=== PATIENT | female | born 1975 | race Caucasian/White ===

== ENCOUNTER 2018-02-13 17:54 | Inpatient (IN) | payer OTHER, SELFPAY ==
[2018-02-13 19:02] LABS: #Basophils 0.1 thou/uL (0.0-0.2); #Eosinphils 0.3 thou/uL (0.0-0.7); #Lymphocytes 3.2 thou/uL (1.20-3.40); #Monocytes 0.8 thou/uL (0.11-0.59); #Neutrophils 5.7 thou/uL (1.40-6.50); %Basophils 0.5 % (0.0-1.0); %Eosinophils 3.3 % (0.0-10.0); %Lymphocytes 31.9 % (21.0-51.0); %Monocytes 7.7 % (0.0-10.0); %Neutrophils 56.6 % (42.0-75.0); Hemoglobin 12.3 g/dL (12.0-16.0); Mean Corpuscular HGB CONC 33.7 g/dL (32.0-36.0); Mean Corpuscular Volume 94.7 fl (81.0-99.0); Platelet Count 295 thou/uL (130-400); RBC Distribution Width 11.8 % (11.5-14.5); Red Blood Cell (RBC) Count 3.84 mill/uL (4.20-5.40); White Blood Cell (WBC) Count 10.1 thou/uL (4.8-10.8)
[2018-02-13 19:12] LABS: Prothrombin Time 13.8 SEC (12.0-14.7)
[2018-02-13 19:13] LABS: PTT 29.8 SEC (22.9-36.1)
[2018-02-13 19:23] LABS: ALT (SGPT) 43 U/L (8-55); AST (SGOT) 37 U/L (5-34); Albumin 3.5 g/dL (3.5-5.0); Alkaline Phosphatase 93 U/L (40-150); Anion Gap 11 mmol/L (10-20); BUN (Urea Nitrogen) 27 mg/dL (7.0-18.7); Bilirubin, Total 0.3 mg/dL (0.2-1.2); Calc. Creatinine Clearance 0 mL/min (70-130); Calcium 9.1 mg/dL (7.8-10.44); Carbon Dioxide 24 mmol/L (22-29); Chloride 106 mmol/L (98-107); Estimated GFR-MDRD 26; Glucose 95 mg/dL (70-105); Magnesium 2.1 mg/dL (1.6-2.6); Potassium 4.1 mmol/L (3.5-5.1); Protein, Total 6.5 g/dL (6.0-8.3); Sodium 137 mmol/L (136-145)
[2018-02-13 19:29] LABS: BHCG - Serum Negative (NEGATIVE); Pregs Control Background? CLEAR/WHITE (CLR/WHITE); Pregs Control Bar Appear? YES (CONTROL BAR)
[2018-02-13 19:31] LABS: CKMB 5.9 ng/mL (0-6.6)
[2018-02-13 19:36] LABS: Troponin I 0.859 ng/mL (< 0.028)
[2018-02-13 20:54] LABS: Bilirubin Small (Negative); Blood, Urine Trace (Negative); Clarity TURBID (Clear); Glucose, Urine (Dipstick) 250 mg/dL (Negative); Leukocyte Large (Negative); Nitrite Negative (Negative); Protein, Urine (Dipstick) Trace mg/dL (Neg-Trace); Specific Gravity, Urine 1.027 (1.002-1.036)
[2018-02-13 20:55] LABS: Bacteria/HPF 4+ HPF (None Seen); RBC/HPF 0-3 HPF (0-3); Squamous Epithelial 0-3 HPF (0-3)
[2018-02-13 20:56] LABS: Pathc Cast-AUWi Flag 2.92 (0-2.49); Yeast-AUWi Flag 114.8 (0-25.0)
[2018-02-13 20:57] LABS: Crystals/HPF None Seen HPF (Negative); Hyaline Casts/LPF 0-3 HYALINE CAST LPF (0-3 Hyaline); Yeast-All Forms None Seen HPF (None Seen)
--- NOTE | 2018-02-13 21:00 | RAD ---
SINGLE VIEW OF THE CHEST: Comparison: None. History: Altered mental status. Weakness. High blood glucose. FINDINGS: Single view of the chest shows a normal sized cardiomediastinal silhouette. There is no evidence of c onsolidation, mass, or pleural effusion. The bones are unremarkable. IMPRESSION: No evidence of acute cardiopulmonary disease. POS: [facility]
[2018-02-13 22:16] LABS: Critical Call Chem Troponin I RESULT DECREASING; Troponin I 0.714 ng/mL (< 0.028)
[2018-02-13] MEDS ORDERED: Sodium Chloride 0.9% 1,000 ML IV SCH (22:28)
[2018-02-13 22:34] VITALS: BMI 46.5
[2018-02-14] MEDS ORDERED: Ondansetron ODT 4 MG TAB PO PRN (00:11)
[2018-02-14] MEDS ORDERED: Enoxaparin Sodium 30 MG/0.3 ML SYRINGE SC SCH (00:11)
[2018-02-14] MEDS ORDERED: Dextrose 50% Abboject 50 ML SYRINGE SLOW IVP PRN ×2 (00:11→21:50)
[2018-02-14] MEDS ORDERED: Acetaminophen 325 MG TAB PO PRN (00:11)
[2018-02-14] MEDS ORDERED: Ondansetron HCl/PF 4 MG/2 ML Vial IVP PRN (00:11)
[2018-02-14] MEDS ORDERED: Dextrose 5% in Water 1,000 ML IV PRN ×2 (00:11→21:50)
[2018-02-14] MEDS: Sodium Chloride 0.9% 1,000 ML IV SCH ×3 (00:46→21:16)
[2018-02-14 00:57] LABS: CKMB 6.1 ng/mL (0-6.6)
[2018-02-14 00:59] LABS: Critical Call Chem Troponin I RESULT DECREASING; Troponin I 0.496 ng/mL (< 0.028)
--- NOTE | 2018-02-14 03:58 | HP ---
PRIMARY CARE PHYSICIAN: JOSE MIGUEL Alexandre. DATE OF ADMISSION: 02/13/2018 TIME OF SERVICE: 2245 hours. CHIEF COMPLAINT: Altered mental status. HISTORY OF PRESENT ILLNESS: Ms. Bejarano is a pleasant 42-year-old female with history of severe ob esity, fibromyalgia, insulin-dependent diabetes, hypertension, hyperlipidemia, who presents to the em ergency department via EMS after being altered. The patient was in normal state of health. She took a Levemir the night of 02/12/2018, and was drivi ng home to [place] with her fiance. They did not eat breakfast as they normally do and noted that while she was driving that she had some split-second hallucinations that were seen in her peripheral vision, but when she again looked at them, they were gone. They stopped at [place] for lunch where she ate a hamburger and stopped after that to a nap and she wa s feeling tired, but she does need to sleep. From that point on, she does not remember, the rest of the history was told to her and taken from the ER notes. Her alarm went off and her fiance tried to wake her up, but he was unable to get her arousable. EMS was activated. On arrival, her blood sugars were poorly in the 40s. She was given 1 amp of D50 and started on D10 drip and transported to the emergency department. She did come to the emergency department. She denies any chest pain, shortness of breath, no abdomin al pain, no nausea, vomiting, no urinary symptoms, no respiratory symptoms. Blood sugars remained in the 110s to 140 since then. Workup in the emergency department was largely negative. Creatinine was 2.0, which she thinks is hig her than her baseline, she is also noted to have a troponin I that was 0.859 with a repeat of 0.714. We were subsequently called for admit for hypoglycemia and elevated troponin. No history of heart problem. PAST MEDICAL HISTORY: 1. Fibromyalgia. 2. Diabetes mellitus, type 2, insulin-dependent. 3. Hyperlipidemia. 4. Hypertension. 5. Depression. 6. Retinal stroke about 2-1/2 years ago. She had a cardiac workup at the [facility] that was reportedly neg ative. 7. Severe obesity. PAST SURGICAL HISTORY: Cholecystectomy. HOME MEDICATIONS: 1. Levemir 100 units subcu at bedtime. 2. NovoLog, she said 8 units per 10 grams of carbohydrates per meal and NovoLog 8 units for every 10 0 mg/dL, blood glucose greater than 120. CURRENT MEDICATIONS: 1. Aspirin 81 mg daily. 2. Atorvastatin 80 mg p.o. at bedtime. 3. Flexeril 10 mg p.o. b.i.d. 4. Fluvoxamine 100 mg p.o. t.i.d. 5. Hydroxyzine 50 mg p.o. at bedtime. 6. Losartan 50 mg p.o. daily. 7. Omeprazole 40 mg at bedtime. 8. Lyrica 150 mg p.o. b.i.d. 9. Propranolol 50 mg daily. 10. Tramadol 100 mg p.o. t.i.d. p.r.n. ALLERGIES: LISINOPRIL, METFORMIN, and another blood pressure medication which she cannot recall. FAMILY HISTORY: Negative for clotting or bleeding disorder, no immune dysfunction. No premature cor onary artery disease. SOCIAL HISTORY: She uses rare alcohol. No tobacco or IV drug. She is engaged to her fiance. She d id serve about 4-1/2 years in the [employer]. REVIEW OF SYSTEMS: A 10-point review of systems was performed and is negative for all systems except as stated as per HPI. PHYSICAL EXAMINATION: VITAL SIGNS: Temperature 97.8, pulse 75, blood pressure 116/58, respiratory rate 20, satting 97% on room air. GENERAL: She is awake. She is alert. She is oriented x3. She is a severely obese, well-nourished white female, who is in no distress. HEENT: Normocephalic, atraumatic. Pupils are equal, round and react to light bilaterally. Mucous m embranes are moist. Teeth are in poor repair. She is almost edentulous. NECK: Supple. I cannot see any JVD. I can palpate no lymphadenopathy. She has normal carotid upst rokes. I do not appreciate bruits. LUNGS: Clear. She has good air movement. Symmetrical chest excursion. No prolonged expiratory pha se. No wheezes, rales or rhonchi. CARDIOVASCULAR: Heart sounds are distant. I do hear a normal S1 and S2. No S3 or S4. I do not fauzia reciate murmurs. ABDOMEN: Severely obese, it is nontender, nondistended. She has good bowel sounds. I cannot palpat e internal organs. EXTREMITIES: There are no signs of clubbing with trace pedal edema from the ankle level distally. D orsalis pedis and posterior tibial pulses are 2+ bilaterally. SKIN: Otherwise warm, moist and well perfused. She has no rashes or lesions. MUSCULOSKELETAL: Normal to inspection. Large joints appear intact. There is no palpable effusions and no inflammation. NEUROLOGIC: Cranial nerves II-XII are grossly intact, she has no focal deficits, she has 5/5 strengt h in all 4 of her extremities. She has a normal speech pattern. LABORATORY DATA: Sodium is 137, potassium 4.1, chloride 106, bicarbonate 24, BUN 27, creatinine 2.08 , calcium 9.1, glucose 95. Liver function normal except for an AST barely abnormal at 37. CBC showed a white count of 10.1, hem oglobin 12.3, hematocrit 36.3, and platelet count is 295,000. Her white count has normal differentia l. Total CK was 129 with CK-MB of 5.9. Initial troponin I was 0.859 with a repeat of 0.714. Lactic aci d was normal at 1.6. INR was 1.0. RADIOGRAPHIC STUDIES: Chest x-ray done in the emergency department showed no evidence of acute cardi opulmonary disease. ASSESSMENT AND PLAN: 1. Metabolic encephalopathy: The patient did get hypoglycemic that has since resolved and mental st atus has returned to normal. 2. Abnormal troponin: Troponin is certainly elevated in the concerning range at 0.859. We will get serial cardiac biomarkers, we will request a 2D echocardiogram. We will likely need Cardiology cons ultation and possible stress test. She had no symptoms. We will place her on metoprolol and nitro p aste tonight and watch her closely. 3. Acute kidney injury versus chronic kidney disease: Creatinine is 2.08. She is not noted being t hat high normally. We will hydrate her with normal saline and recheck her morning creatinine. 4. Severe obesity. 5. Hypertension, not on any antihypertensive that she listed. 6. Diabetes mellitus, type 2, insulin-dependent. Due to hypoglycemia, we will place her on sliding scale insulin only and a diabetic diet. She will be n.p.o. after midnight anyways.
[2018-02-14 05:47] LABS: ALT (SGPT) 49 U/L (8-55); AST (SGOT) 47 U/L (5-34); Albumin 3.2 g/dL (3.5-5.0); Alkaline Phosphatase 101 U/L (40-150); Anion Gap 17 mmol/L (10-20); BUN (Urea Nitrogen) 31 mg/dL (7.0-18.7); Bilirubin, Total 0.2 mg/dL (0.2-1.2); Calc. Creatinine Clearance 56 mL/min (70-130); Calcium 8.2 mg/dL (7.8-10.44); Carbon Dioxide 17 mmol/L (22-29); Cardiac Risk 2.9 (Less than 4.5); Chloride 105 mmol/L (98-107); Cholesterol 136 mg/dl (< 200 Desired); Estimated GFR-MDRD 20; Globulin 2.7 g/dL (2.4-3.5); Glucose 424 mg/dL (70-105); HDL Cholesterol 47 mg/dL (>60 Neg Risk); LDL Cholesterol, Calculated 69 mg/dL; Potassium 5.8 mmol/L (3.5-5.1); Protein, Total 5.9 g/dL (6.0-8.3); Sodium 133 mmol/L (136-145); Triglycerides 101 mg/dL (Less than 150)
[2018-02-14 06:11] LABS: Hemoglobin A1c 7.4 % (4.0-6.0)
[2018-02-14 06:23] LABS: Band 7 % (5-11); Eosinophils 1 % (0-10); Hemoglobin 11.6 g/dL (12.0-16.0); Lymphocytes 21 % (21-51); MDiff Complete? YES; Mean Corpuscular HGB CONC 30.8 g/dL (32.0-36.0); Mean Corpuscular Hemoglobin 31.3 pg (27.0-31.0); Mean Platelet Volume 7.6 fL (7.4-10.4); Monocytes 4 % (0-10); Neutrophil 67 % (42-75); Platelet Count 250 thou/uL (130-400); RBC Distribution Width 11.9 % (11.5-14.5); Red Blood Cell (RBC) Count 3.69 mill/uL (4.20-5.40); White Blood Cell (WBC) Count 11.3 thou/uL (4.8-10.8)
[2018-02-14] MEDS: HumaLOG 300 UNITS/3 ML VIAL SC PRN ×3 (06:35→17:38)
[2018-02-14] MEDS ORDERED: cefTRIAXone\\ROCEPHIN 1 GM in Sodium Chloride 0.9% 100 ML IVPB SCH (07:15)
[2018-02-14] MEDS ORDERED: Famotidine 20 MG TAB PO SCH (09:00)
[2018-02-14] MEDS: cefTRIAXone\\ROCEPHIN 1 GM, Syringe 0.4 ML in Sterile Water 9.6 ML SLOW IVP SCH (09:07)
[2018-02-14 09:47] LABS: CKMB 7.7 ng/mL (0-6.6); Troponin I 0.846 ng/mL (< 0.028)
[2018-02-14] MEDS ORDERED: Nitroglycerin 0.4 MG TAB (25 Tab Bottle) PO PRN (11:33)
[2018-02-14] MEDS ORDERED: Cyclobenzaprine 10 MG TAB PO PRN (11:38)
[2018-02-14] MEDS ORDERED: Insulin Detemir 100 UNITS/ML 15 UNITS in Pre-Filled Syringe SC SCH (12:45)
--- NOTE | 2018-02-14 12:47 | PDOC.PN ---
- Subjective Encounter Start Date: 02/14/18 Encounter Start Time: 08:15 Subjective: no c/o chest pain or sob -: is awake and oriented -: no prior ckd per patient - Objective Resuscitation Status: Resuscitation Status FULL:Full Resuscitation MAR Reviewed: Yes Vital Signs & Weight: Vital Signs (12 hours) Temp Pulse Pulse Pulse Resp Resp Resp 02/14/18 10:58 82 78 18 18 02/14/18 08:24 97.4 F L 80 15 02/14/18 04:00 98.7 F 70 16 BP BP BP Pulse Ox Pulse Ox Pulse Ox 02/14/18 10:58 189/98 H 174/88 H 99 98 02/14/18 08:24 132/78 97 02/14/18 04:00 98/50 L 97 Weight Weight 288 lb 12.8 oz I&O: 02/13/18 02/14/18 02/15/18 06:59 06:59 06:59 Intake Total 569 Balance 569 Result Diagrams: 02/14/18 04:41 02/14/18 04:41 Additional Labs: Accuchecks 02/14/18 02/14/18 02/14/18 12:00 11:03 09:47 POC Glucose 354 H 327 H 348 H 02/14/18 02/13/18 02/13/18 06:10 22:15 20:26 POC Glucose Greater than 550 H* 168 H 112 H Phys Exam - Physical Examination HEENT: PERRLA, moist MMs Neck: no JVD, supple Respiratory: no wheezing, no rales Cardiovascular: RRR, no significant murmur Gastrointestinal: soft, non-tender, positive bowel sounds Musculoskeletal: no edema, pulses present Neurological: non-focal, moves all 4 limbs Psychiatric: normal affect, A&O x 3 Dx/Plan (1) DM type 2 (diabetes mellitus, type 2) Status: Chronic Qualifiers: Diabetes mellitus complication status: with hyperglycemia (2) Demand ischemia of myocardium Code(s): I24.8 - OTHER FORMS OF ACUTE ISCHEMIC HEART DISEASE Status: Acute (3) EZEKIEL (acute kidney injury) Code(s): N17.9 - ACUTE KIDNEY FAILURE, UNSPECIFIED Status: Acute (4) Dehydration Code(s): E86.0 - DEHYDRATION Status: Acute Comment: moderate (5) UTI (urinary tract infection) Status: Acute Qualifiers: Urinary tract infection type: acute cystitis Hematuria presence: without hematuria Qualified Code(s): N30.00 - Acute cystitis without hematuria (6) Morbid obesity with BMI of 45.0-49.9, adult Code(s): E66.01 - MORBID (SEVERE) OBESITY DUE TO EXCESS CALORIES; Z68.42 - BODY MASS INDEX (BMI) 45.0-49.9, ADULT Status: Chronic (7) Metabolic acidosis Code(s): E87.2 - ACIDOSIS Status: Acute (8) Acute encephalopathy Code(s): G93.40 - ENCEPHALOPATHY, UNSPECIFIED Status: Resolved Comment: due to hypoglycemia (9) HTN (hypertension) Code(s): I10 - ESSENTIAL (PRIMARY) HYPERTENSION Status: Chronic Qualifiers: Hypertension type: essential hypertension Qualified Code(s): I10 - Essential (primary) hypertension - Plan correct electrolytes -: iv hydration, watch for renal function -: stress test in am if stable and renal function is trending to baseline -: levemir 15u bid, HbA1C is 7.4 -: ceftriaxone for uti, echo, cardio consultation * . Review of Systems - Medications/Allergies Allergies/Adverse Reactions: Allergies Allergy/AdvReac Type Severity Reaction Status Date / Time lisinopril Allergy Verified 02/13/18 23:26 metformin Allergy Verified 02/13/18 23:26 Medications: Current Medications Acetaminophen (Tylenol) 650 mg PO Q4H PRN PRN Reason: Headache/Fever or Pain Aspirin (Aspirin) 325 mg PO DAILY [facility] Atorvastatin Calcium (Lipitor) 80 mg PO HS [facility] Cyclobenzaprine HCl (Flexeril) 10 mg PO BID PRN PRN Reason: pain Dextrose/Water (Dextrose 50%) 25 gm SLOW IVP PRN PRN PRN Reason: Hypoglycemia Fluvoxamine Maleate (Luvox) 100 mg PO TID [facility] Glucagon (Glucagon) 1 mg IM PRN PRN PRN Reason: Hypoglycemia Dextrose/Water (D5w) 1,000 mls @ 0 mls/hr IV .Q0M PRN; As Directed PRN Reason: Hypoglycemia Sodium Chloride (Normal Saline 0.9%) 1,000 mls @ 100 mls/hr IV .Q10H [facility] Last Admin: 02/14/18 00:46 Dose: 1,000 mls Ceftriaxone Sodium 1 gm/ (Syringe 0.4 ml/ Sterile Water) 10 mls @ 120 mls/hr SLOW IVP 0900 [facility] Last Admin: 02/14/18 09:07 Dose: 10 mls Insulin Detemir 15 units/ (Miscellaneous Medication) 0.15 mls @ 0 mls/hr SC BID [facility] Insulin Detemir 15 units/ (Miscellaneous Medication) 0.15 mls @ 0 mls/hr SC NOW [facility] Stop: 02/14/18 14:45 Insulin Human Lispro (Humalog) 0 units SC .MILD SLIDING SCALE PRN PRN Reason: Mild Correctional Scale Last Admin: 02/14/18 06:35 Dose: 6 unit Metoprolol Tartrate (Lopressor) 12.5 mg PO BID [facility] Nitroglycerin (Nitrostat) 0.4 mg PO Q5MIN PRN PRN Reason: Chest Pain Ondansetron HCl (Zofran Odt) 4 mg PO Q6H PRN PRN Reason: Nausea/Vomiting Ondansetron HCl (Zofran) 4 mg IVP Q6H PRN PRN Reason: Nausea/Vomiting Pantoprazole Sodium (Protonix) 40 mg PO HS [facility] Pregabalin (Lyrica) 150 mg PO BID [facility]
--- NOTE | 2018-02-14 15:38 | CON ---
DATE OF CONSULTATION: 02/14/2018 DATE OF ADMISSION: 02/13/2018 INDICATION FOR CONSULTATION: This is a 42-year-old female with a history of diabetes, hypertension, hypercholesterolemia, and elevated cardiac enzymes. HISTORY OF PRESENT ILLNESS: This is a very pleasant 42-year-old female, who has a history of insulin -dependent diabetes, hypertension, dyslipidemia with severe obesity, and fibromyalgia. She presented to the emergency room after having mental status changes or altered mental status. She had been yes terday driving through this area when she felt like she was seeing some hallucinations, and she thoug ht perhaps her blood sugar was low. They stopped and got some lunch. She thought she would take a n ap and after that the next thing she remembers was being in the emergency room. Apparently her fianc e tried to wake her up. He was not driving, as he has epilepsy, but she was sitting behind the steer ing wheel when he called 911, but she had been stopped and was trying to take a nap. He could not a rouse her and then the 911 was called and she was brought to the emergency room, she was found to hav e a decrease in her blood sugar. I believe her heart rate was in the 40s and she was given an amp of D50 and started on a drip. This was performed actually before she was even brought to the emergency room. Since being here, her blood sugars have been anywhere in the 500 to [address]. [address] atus has improved; however, she is still not exactly back to her baseline she says, and some of the q uestions, she will start to answer a question, but will drift off to another question entirely or to another answer and is having confusion and sometimes with some of the issues for them questioning her . She denied any chest pain. She denied any previous cardiac history. She did have a workup appare ntly about 2-1/2 years ago with possible stress testing at the [facility], but no significant abnorm alities were noted at that time. At this time, she had no EKG changes, but cardiac enzymes were slightly elevated. The troponin I [facility] was 0.71 and then decreased down to 0.49 and then back up to 0.84. Her MBs have increased fr om 5.9-6.1-7.7, still somewhat borderline or indeterminate for myocardial infarction. Due to her sev ere decrease in the blood sugars, she could have suffered also some acute renal insufficiency, as her creatinine has increased from 2.0-2.66, and some of the elevated abnormal cardiac enzymes may be due in part to her acute renal insufficiency or acute renal injury. Otherwise, she has no chest pain. She has no EKG changes. EKG is unremarkable. PAST MEDICAL HISTORY: Significant for the type 2 diabetes, which is insulin-dependent; hypertension; hypercholesterolemia. She also has fibromyalgia. She has a history of depression. She has had a r etinal stroke in the past and had severe obesity. She has had a left elbow dislocation. She has had a left foot fracture. She had a left shoulder dislocation. She has had a cholecystectomy. MEDICATIONS: Include aspirin, atorvastatin, Flexeril, fluvoxamine, hydroxyzine, losartan, omeprazole , Lyrica, propranolol, tramadol, and insulin. ALLERGIES: She is intolerant of LISINOPRIL, which causes her cough; METFORMIN, causes her to have vo miting. SOCIAL HISTORY: She is single. She says she is engaged. 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 She has rare alcohol use, no tobacco abuse. FAMILY HISTORY: Her father had some type of coronary artery disease according to the patient, and so that her paternal grandfather. She has had no other significant family history. Her mother did hav e diabetes, and most likely of sepsis at a relatively young age according to the patient. REVIEW OF SYSTEMS: She complains of decreased vision in the left eye after the retinal stroke in the past. Otherwise, 12-point review of systems is relatively unremarkable. She did occasionally have some atypical-type chest discomfort, which she attributed to her fibromyalgia which could occur at an y time and may last for an extended length of time before resolving. PHYSICAL EXAMINATION: GENERAL: Reveals a morbidly obese female, who is alert. She is oriented. She is somewhat slightly confused. HEENT EXAM: Shows her head to be normocephalic and atraumatic. Carotid pulses are present. I did n ot hear any bruits. There is no JVD. The thyroid did not appear to be enlarged. Her oral mucosa wa s pink and moist. CHEST: Clear to auscultation. I did not any hear rales, rhonchi, or wheezing. CARDIOVASCULAR EXAM: Reveals a regular rate and rhythm with normal S1 and S2. There is no S3 or S4. There were no significant murmurs, heaves, thrills, bruits, or rubs. ABDOMINAL EXAM: Shows severe obesity. She has bowel sounds. I could not palpate any masses or tend erness. EXTREMITIES: Showed no clubbing, cyanosis, or edema. She had mild lower extremity edema. It was di fficult for me to palpate her pulses in the popliteal and pedal areas. This may be due to her obesit y. Otherwise, femoral pulses are present. SKIN: Warm and dry. NEUROLOGIC: She appears to be relatively intact except she does have some slight confusion still. LABORATORY DATA: Shows a sodium of 133, potassium is 5.8, creatinine is 2.66 with a BUN of 31. Her blood sugar is now down to 354, but early it was 550. Hemoglobin was 11.6 with a WBC of 11.3, platel et count was 250,000. Urinalysis shows 4+ bacteria in the urine. Her CPKs and MBs are noted above. Her LDL was 69. EKG is unremarkable. Chest x-ray is also unremarkable for any acute process. IMPRESSION: 1. Abnormal cardiac enzymes, which may be due to demand ischemia associated with her hypoglycemia an d also with acute renal insufficiency. We will continue to monitor this. Once she is stable, I woul d suggest stress testing in this lady, maybe a 2-day protocol due to her obesity. If there are any a bnormalities, then we would suggest cardiac catheterization due to her high risk of coronary disease associated with her diabetes, hypertension, and high cholesterolemia. 2. Mild metabolic encephalopathy. This appears to have improved from originally when the patient wa s arrived, but she is still not quite right that she even is aware of herself that she cannot think s traight and does get confused and goes off on tangents about other things and cannot focus as well as she normally can. 3. Acute renal insufficiency. She says in the past that she has been told that her kidney function had started to decrease somewhat, but she is uncertain of the numbers. She did have perhaps some lab work done back in August or September of last year. We do not have those records. At this time, th e creatinine has continued to increase, which makes her very poor candidate for further cardiac inter vention, requiring contrast material. 4. Hypertension. Her blood pressure originally when she came in was 98/50, increased to 132/78, and the last blood pressure was 174/88. We will need to resume her medications. 5. Type 2 diabetes. This will be dealt with by the primary care service. 6. Severe obesity. I would suggest she undergo some type of a dietary consultation prior to dischar ge if at all possible. We would be more than happy to continue to follow the patient with you, but jordyn english will need to review the results of her stress test prior to any further evaluation and also the ech ocardiogram. I believe the echocardiogram did not show any acute changes. I believe the ejection fr action was within normal limits.
[2018-02-14] MEDS: Pregabalin 75 MG CAP PO SCH (20:03)
[2018-02-14] MEDS: Atorvastatin Calcium 40 MG TAB PO SCH (20:05)
[2018-02-14] MEDS: Metoprolol Tartrate 25 MG TAB PO SCH (20:05)
[2018-02-14] MEDS: Insulin Detemir 100 UNITS/ML 15 UNITS in Pre-Filled Syringe 1 EACH SC SCH (20:06)
[2018-02-14] MEDS ORDERED: HumaLOG 300 UNITS/3 ML VIAL SC PRN (21:50)
[2018-02-15] MEDS: Sodium Chloride 0.9% 1,000 ML IV SCH (06:29)
[2018-02-15 08:37] LABS: #Basophils 0.1 thou/uL (0.0-0.2); #Eosinphils 0.3 thou/uL (0.0-0.7); #Lymphocytes 3.8 thou/uL (1.20-3.40); #Monocytes 0.7 thou/uL (0.11-0.59); #Neutrophils 3.7 thou/uL (1.40-6.50); %Basophils 0.7 % (0.0-1.0); %Eosinophils 3.4 % (0.0-10.0); %Lymphocytes 44.2 % (21.0-51.0); %Monocytes 8.5 % (0.0-10.0); %Neutrophils 43.1 % (42.0-75.0); Hemoglobin 11.7 g/dL (12.0-16.0); Mean Corpuscular HGB CONC 33.9 g/dL (32.0-36.0); Mean Corpuscular Hemoglobin 32.4 pg (27.0-31.0); Mean Corpuscular Volume 95.3 fl (81.0-99.0); Mean Platelet Volume 7.8 fL (7.4-10.4); Platelet Count 261 thou/uL (130-400); RBC Distribution Width 11.7 % (11.5-14.5); Red Blood Cell (RBC) Count 3.62 mill/uL (4.20-5.40); White Blood Cell (WBC) Count 8.5 thou/uL (4.8-10.8)
[2018-02-15] MEDS ORDERED: NIFEdipine XL 30 MG TAB PO SCH (08:45)
[2018-02-15] MEDS: hydrALAZINE 25 MG TAB PO SCH ×3 (08:49→21:21)
[2018-02-15] MEDS: Pregabalin 75 MG CAP PO SCH ×2 (08:49→21:19)
[2018-02-15] MEDS: cefTRIAXone\\ROCEPHIN 1 GM, Syringe 0.4 ML in Sterile Water 9.6 ML SLOW IVP SCH (08:50)
[2018-02-15] MEDS: Aspirin 325 MG TAB PO SCH (08:51)
[2018-02-15] MEDS: cloNIDine 0.1 MG TAB PO PRN ×2 (08:51→16:53)
[2018-02-15] MEDS: NIFEdipine XL 30 MG TAB PO SCH (08:54)
[2018-02-15] MEDS: Insulin Detemir 100 UNITS/ML 15 UNITS in Pre-Filled Syringe 1 EACH SC SCH ×2 (09:00→21:22)
[2018-02-15 09:06] LABS: Anion Gap 14 mmol/L (10-20); BUN (Urea Nitrogen) 21 mg/dL (7.0-18.7); Calc. Creatinine Clearance 133 mL/min (70-130); Calcium 8.8 mg/dL (7.8-10.44); Carbon Dioxide 18 mmol/L (22-29); Chloride 111 mmol/L (98-107); Estimated GFR-MDRD 51; Glucose 91 mg/dL (70-105); Potassium 4.2 mmol/L (3.5-5.1); Sodium 139 mmol/L (136-145)
--- NOTE | 2018-02-15 11:11 | PDOC.CTH ---
<Amparo Mcnally - Last Filed: 02/15/18 11:09> Cardiology Progress Note - Subjective The pt seen and examined. No overnight events. No cardiac complaints. She is mildly confused this AM. - Objective Vital Signs Temp Pulse Resp BP BP BP Pulse Ox 02/15/18 08:54 72 02/15/18 08:50 72 02/15/18 08:49 72 220/110 H 02/15/18 07:52 97.8 F 72 16 234/129 H 93 L 02/15/18 04:00 97.8 F 73 20 168/88 H 94 L 02/15/18 00:33 139/84 02/15/18 00:11 98.2 F 75 20 170/107 H 97 Weight 294 lb 9.6 oz 02/14/18 02/15/18 02/16/18 06:59 06:59 06:59 Intake Total 569 240 Output Total 1450 Balance 569 -1210 - Physical Examination General/Neuro: other: (not to situation) Neck: no JVD present Lungs: CTA Heart: RRR Abdomen: soft Extremities: other: (No edemas) - Telemetry Telemetry Rhythm: SR - Labs Result Diagrams: 02/15/18 04:16 02/15/18 04:16 Troponin/CKMB CK-MB (CK-2) 7.7 ng/mL (0-6.6) H* 02/14/18 09:02 Troponin I 0.846 ng/mL (< 0.028) H* 02/14/18 09:02 - Assessment/Plan 1. Elevated Trop - Stress test and Echo today 2. HTN - Hydralazine 25mg TID was started from this AM with PRN clonidine 3. EZEKIEL - improving 4. DM type 2 - managed by PCP 5. UTI - on Antibiotics; managed by PCP 6. Hyperlipidemia - on Statin 7. Obese MAR reviewed Review of Systems - Review of Systems Constitutional: reports: no symptoms reported EENTM: reports: no symptoms reported Respiratory: reports: no symptoms reported Cardiac (ROS): reports: no symptoms reported ABD/GI: reports: no symptoms reported : reports: no symptoms reported Musculoskeletal: reports: no symptoms reported <Anna Bhatt - Last Filed: 02/15/18 18:06> Cardiology Progress Note - Objective Vital Signs Temp Pulse Resp BP BP BP Pulse Ox 02/15/18 16:53 189/86 H 02/15/18 16:50 97.3 F L 83 17 189/86 H 02/15/18 15:03 75 135/93 H 02/15/18 12:40 97.3 F L 75 16 135/93 H 94 L 02/15/18 08:55 97.8 F 72 16 93 L 02/15/18 08:54 72 02/15/18 08:50 72 02/15/18 08:49 72 220/110 H 02/15/18 07:52 97.8 F 72 16 234/129 H 93 L Weight 294 lb 9.6 oz 02/14/18 02/15/18 02/16/18 06:59 06:59 06:59 Intake Total 569 240 Output Total 1450 1100 Balance 569 -1210 -1100 - Labs Result Diagrams: 02/15/18 04:16 02/15/18 04:16 Troponin/CKMB CK-MB (CK-2) 7.7 ng/mL (0-6.6) H* 02/14/18 09:02 Troponin I 0.846 ng/mL (< 0.028) H* 02/14/18 09:02 - Assessment/Plan Pt. seen and eval. by me. i agree with the A/P by the [employer]VENUE [employer]LECTOR. The stress test is negative for ischemia. I will sign off. Thank you.
--- NOTE | 2018-02-15 12:58 | PDOC.PN ---
- Subjective Encounter Start Date: 02/15/18 Encounter Start Time: 09:00 Subjective: no sob or chest pain -: feels better - Objective Resuscitation Status: Resuscitation Status FULL:Full Resuscitation MAR Reviewed: Yes Vital Signs & Weight: Vital Signs (12 hours) Temp Pulse Resp BP BP BP Pulse Ox 02/15/18 12:40 97.3 F L 75 16 135/93 H 94 L 02/15/18 08:55 97.8 F 72 16 93 L 02/15/18 08:54 72 02/15/18 08:50 72 02/15/18 08:49 72 220/110 H 02/15/18 07:52 97.8 F 72 16 234/129 H 93 L 02/15/18 04:00 97.8 F 73 20 168/88 H 94 L Weight Weight 294 lb 9.6 oz I&O: 02/14/18 02/15/18 02/16/18 06:59 06:59 06:59 Intake Total 569 240 Output Total 1450 Balance 569 -1210 Result Diagrams: 02/15/18 04:16 02/15/18 04:16 Additional Labs: Accuchecks 02/15/18 02/14/18 02/14/18 06:20 20:24 17:18 POC Glucose 120 H 302 H 343 H Phys Exam - Physical Examination HEENT: PERRLA, moist MMs Neck: no JVD, supple Respiratory: no wheezing, no rales Cardiovascular: RRR, no significant murmur Gastrointestinal: soft, non-tender, no distention, positive bowel sounds Musculoskeletal: no edema, pulses present Neurological: non-focal, moves all 4 limbs Psychiatric: normal affect, A&O x 3 Dx/Plan (1) DM type 2 (diabetes mellitus, type 2) Status: Chronic Qualifiers: Diabetes mellitus ocean transportation intermediary insulin use: with ocean transportation intermediary use Diabetes mellitus complication status: with hyperglycemia Qualified Code(s): E11.65 - Type 2 diabetes mellitus with hyperglycemia; Z79.4 - oil heaterman (current) use of insulin; Z79.4 - oil heaterman (current) use of insulin; Z79.4 - MCC (current ) use of insulin; Z79.4 - MCC (current) use of insulin (2) Demand ischemia of myocardium Code(s): I24.8 - OTHER FORMS OF ACUTE ISCHEMIC HEART DISEASE Status: Acute (3) EZEKIEL (acute kidney injury) Code(s): N17.9 - ACUTE KIDNEY FAILURE, UNSPECIFIED Status: Resolved (4) Dehydration Code(s): E86.0 - DEHYDRATION Status: Resolved Comment: moderate (5) UTI (urinary tract infection) Status: Acute Qualifiers: Urinary tract infection type: acute cystitis Hematuria presence: without hematuria Qualified Code(s): N30.00 - Acute cystitis without hematuria (6) Morbid obesity with BMI of 45.0-49.9, adult Code(s): E66.01 - MORBID (SEVERE) OBESITY DUE TO EXCESS CALORIES; Z68.42 - BODY MASS INDEX (BMI) 45.0-49.9, ADULT Status: Chronic (7) Metabolic acidosis Code(s): E87.2 - ACIDOSIS Status: Acute (8) Acute encephalopathy Code(s): G93.40 - ENCEPHALOPATHY, UNSPECIFIED Status: Resolved Comment: due to hypoglycemia (9) HTN (hypertension) Code(s): I10 - ESSENTIAL (PRIMARY) HYPERTENSION Status: Chronic Qualifiers: Hypertension type: essential hypertension Qualified Code(s): I10 - Essential (primary) hypertension - Plan renal function is at baseline now -: dm is slowing getting controlled, on levemir 15 bid -: 2 day stress test -: on ceftriaxone, await full urine cs results -: add procardia for htn which is slightly uncontrolled this am * . Review of Systems - Medications/Allergies Allergies/Adverse Reactions: Allergies Allergy/AdvReac Type Severity Reaction Status Date / Time lisinopril Allergy Verified 02/13/18 23:26 metformin Allergy Verified 02/13/18 23:26 Medications: Current Medications Acetaminophen (Tylenol) 650 mg PO Q4H PRN PRN Reason: Headache/Fever or Pain Last Admin: 02/14/18 20:09 Dose: 650 mg Aspirin (Aspirin) 325 mg PO DAILY [facility] Last Admin: 02/15/18 08:51 Dose: 325 mg Atorvastatin Calcium (Lipitor) 80 mg PO HS [facility] Last Admin: 02/14/18 20:05 Dose: 80 mg Clonidine (Catapres) 0.1 mg PO Q4H PRN PRN Reason: sbp>180 Last Admin: 02/15/18 08:51 Dose: 0.1 mg Cyclobenzaprine HCl (Flexeril) 10 mg PO BID PRN PRN Reason: pain Last Admin: 02/14/18 16:04 Dose: 10 mg Dextrose/Water (Dextrose 50%) 25 gm SLOW IVP PRN PRN PRN Reason: Hypoglycemia Dextrose/Water (Dextrose 50%) 25 gm SLOW IVP PRN PRN PRN Reason: Hypoglycemia Fluvoxamine Maleate (Luvox) 100 mg PO TID [facility] Last Admin: 02/15/18 08:51 Dose: 100 mg Glucagon (Glucagon) 1 mg IM PRN PRN PRN Reason: Hypoglycemia Glucagon (Glucagon) 1 mg IM PRN PRN PRN Reason: Hypoglycemia Hydralazine HCl (Apresoline) 25 mg PO TID [facility] Last Admin: 02/15/18 08:49 Dose: 25 mg Dextrose/Water (D5w) 1,000 mls @ 0 mls/hr IV .Q0M PRN; As Directed PRN Reason: Hypoglycemia Ceftriaxone Sodium 1 gm/ (Syringe 0.4 ml/ Sterile Water) 10 mls @ 120 mls/hr SLOW IVP 0900 [facility] Last Admin: 02/15/18 08:50 Dose: 10 mls Insulin Detemir 15 units/ (Miscellaneous Medication) 0.15 mls @ 0 mls/hr SC BID [facility] Last Admin: 02/14/18 20:06 Dose: 0.15 mls Dextrose/Water (D5w) 1,000 mls @ 0 mls/hr IV .Q0M PRN; As Directed PRN Reason: Hypoglycemia Insulin Human Lispro (Humalog) 0 units SC .AGGRESSIVE SLIDING PRN PRN Reason: Aggressive Correctional Scale Insulin Human Lispro (Humalog) 0 units SC .BEDTIME SLIDING SC PRN PRN Reason: Bedtime Correctional Scale Last Admin: 02/14/18 22:10 Dose: 4 unit Metoprolol Tartrate (Lopressor) 12.5 mg PO BID [facility] Last Admin: 02/14/18 20:05 Dose: 12.5 mg Nifedipine (Procardia Xl) 30 mg PO DAILY [facility] Last Admin: 02/15/18 08:54 Dose: Not Given Nitroglycerin (Nitrostat) 0.4 mg PO Q5MIN PRN PRN Reason: Chest Pain Ondansetron HCl (Zofran Odt) 4 mg PO Q6H PRN PRN Reason: Nausea/Vomiting Ondansetron HCl (Zofran) 4 mg IVP Q6H PRN PRN Reason: Nausea/Vomiting Pantoprazole Sodium (Protonix) 40 mg PO HS [facility] Last Admin: 02/14/18 20:08 Dose: 40 mg Pregabalin (Lyrica) 150 mg PO BID [facility] Last Admin: 02/15/18 08:49 Dose: 150 mg
[2018-02-15] MEDS: Metoprolol Tartrate 25 MG TAB PO SCH ×2 (15:02→21:20)
--- NOTE | 2018-02-15 16:00 | NM ---
STRESS MYOCARDIAL PERFUSION STUDY: 02/15/18 HISTORY: Chest pain, hypertension, diabetes mellitus, dyslipidemia, family history of coronary artery disease. RADIOPHARMACEUTICAL: 29.8 millicuries technetium 99m Sestamibi IV at stress. MEDICATIONS: 24.5 mL (73.4 mg) Adenosine, IV. FINDINGS: Stress acquisition was repeated due to large amount of bowel activity on initial imaging. Patient mot ion is also seen on acquired images. However, evaluation of the provided stress images, there is no significant defect seen to suggest ischemia or scarring. There is normal ventricular wall thickening, but there is mild hypokinesis involving the inferior left ventricular wall. Calculated left ventricu lar ejection fraction is borderline decreased with LVEF of 49%. IMPRESSION: 1. No significant defect seen on stress acquisitions within the left ventricular myocardium to s uggest ischemia or scarring. 2. Mild hypokinesis involving the inferior left ventricular wall with borderline LVEF of 49%. POS: ANKITA
[2018-02-15] MEDS: HumaLOG 300 UNITS/3 ML VIAL SC PRN (18:11)
[2018-02-15] MEDS: Atorvastatin Calcium 40 MG TAB PO SCH (21:20)
[2018-02-16 05:28] LABS: Anion Gap 10 mmol/L (10-20); BUN (Urea Nitrogen) 12 mg/dL (7.0-18.7); Calc. Creatinine Clearance 182 mL/min (70-130); Calcium 9.3 mg/dL (7.8-10.44); Carbon Dioxide 25 mmol/L (22-29); Chloride 108 mmol/L (98-107); Estimated GFR-MDRD 74; Glucose 190 mg/dL (70-105); Potassium 3.9 mmol/L (3.5-5.1); Sodium 139 mmol/L (136-145)
[2018-02-16] MEDS: Insulin Detemir 100 UNITS/ML 15 UNITS in Pre-Filled Syringe 1 EACH SC SCH (08:57)
[2018-02-16] MEDS: cefTRIAXone\\ROCEPHIN 1 GM, Syringe 0.4 ML in Sterile Water 9.6 ML SLOW IVP SCH (08:58)
[2018-02-16] MEDS: HumaLOG 300 UNITS/3 ML VIAL SC PRN ×2 (08:58→17:07)
[2018-02-16] MEDS: Metoprolol Tartrate 25 MG TAB PO SCH (09:00)
[2018-02-16] MEDS: Aspirin 325 MG TAB PO SCH (09:00)
[2018-02-16] MEDS: hydrALAZINE 25 MG TAB PO SCH ×2 (09:00→15:45)
[2018-02-16] MEDS: cloNIDine 0.1 MG TAB PO PRN (09:00)
[2018-02-16] MEDS: Pregabalin 75 MG CAP PO SCH (09:00)
[2018-02-16] MEDS: NIFEdipine XL 30 MG TAB PO SCH (09:01)
--- NOTE | 2018-02-16 09:34 | PDOC.PN ---
- Subjective Encounter Start Date: 02/16/18 Encounter Start Time: 09:33 was seen today in follow-up. She says she feels much better. She denies chest pain or dyspnea. She admits her diet in the hospital is much different than at home, and she usually eats more at home. - Objective Resuscitation Status: Resuscitation Status FULL:Full Resuscitation MAR Reviewed: Yes Vital Signs & Weight: Vital Signs (12 hours) Temp Pulse Resp BP BP Pulse Ox 02/16/18 09:01 82 02/16/18 09:00 82 189/86 H 02/16/18 07:55 98.3 F 82 18 184/93 H 94 L 02/16/18 04:00 98.7 F 83 20 158/72 H 95 Weight Weight 284 lb 11.2 oz I&O: 02/15/18 02/16/18 02/17/18 06:59 06:59 06:59 Intake Total 240 1320 Output Total 1450 3100 Balance -1210 -1780 Result Diagrams: 02/15/18 04:16 02/16/18 04:59 Additional Labs: Accuchecks 02/16/18 02/15/18 02/15/18 06:08 21:04 17:06 POC Glucose 192 H 229 H 306 H 02/15/18 13:20 POC Glucose 137 H Phys Exam - Physical Examination HEENT: PERRLA Respiratory: no wheezing, no rales, no rhonchi, clear to auscultation bilateral Cardiovascular: RRR, no significant murmur, no rub Gastrointestinal: soft, non-tender, no distention, positive bowel sounds Musculoskeletal: no edema Dx/Plan (1) Hypoglycemia due to type 2 diabetes mellitus Code(s): E11.649 - TYPE 2 DIABETES MELLITUS WITH HYPOGLYCEMIA WITHOUT COMA Status: Acute (2) Acute encephalopathy Code(s): G93.40 - ENCEPHALOPATHY, UNSPECIFIED Status: Resolved Comment: due to hypoglycemia (3) EZEKIEL (acute kidney injury) Code(s): N17.9 - ACUTE KIDNEY FAILURE, UNSPECIFIED Status: Resolved (4) HTN (hypertension) Code(s): I10 - ESSENTIAL (PRIMARY) HYPERTENSION Status: Chronic Qualifiers: Hypertension type: essential hypertension Qualified Code(s): I10 - Essential (primary) hypertension (5) Morbid obesity with BMI of 45.0-49.9, adult Code(s): E66.01 - MORBID (SEVERE) OBESITY DUE TO EXCESS CALORIES; Z68.42 - BODY MASS INDEX (BMI) 45.0-49.9, ADULT Status: Chronic (6) UTI (urinary tract infection) Status: Acute Qualifiers: Urinary tract infection type: acute cystitis Hematuria presence: without hematuria Qualified Code(s): N30.00 - Acute cystitis without hematuria - Plan * Acute encephalopathy due to hypoglycemia- resolved * Hypoglycemia in DM- better- she had had elevated blood glucose in the past day or two, but this has decreased * She is controlled her on only a total of 30 untis of Levemir-, however since her diet will be different at home, will likely send her home on 85 units a day instead of 100. * Elevated troponins- stress test was negative for reversible ischemia- Echo had a normal EF- * UTI- urine culture is positive for E. Coli- can consider home on Bactrim DS * Hopefully home today if ok with cardiology.
[2018-02-16 13:39] VITALS: TEMP 98.1
[2018-02-16 17:09] VITALS: BP 177/82
--- NOTE | 2018-02-17 00:54 | DIS ---
DATE OF ADMISSION: 02/13/2018 DATE OF DISCHARGE: 02/16/2018 PRIMARY CARE PHYSICIAN: Dr. Perkins at the [place], [place] and the phone number that is [phone]. DISCHARGE DISPOSITION: Home. PRIMARY DISCHARGE DIAGNOSES: 1. Hypoglycemia. 2. Urinary tract infection. 3. Acute renal failure, resolved. 4. Diabetes mellitus, type 2. 5. Obesity with BMI of 46. 6. Demand ischemia or non-ST segment elevation myocardial infarction type 2. PROCEDURES DONE DURING THE ADMISSION: The patient had an echocardiogram in which the ejection fracti on was estimated at 55-60%. There was normal right ventricular size and function. The patient also had a nuclear stress test in which there was no significant defect seen. There was some mild hypokin esis involving the inferior wall of the left ventricle with borderline EF of 49%. CODE STATUS: Full code. ALLERGIES: To LISINOPRIL and METFORMIN. HOSPITAL COURSE: Ms. Bejarano is a pleasant 42-year-old female that presented to the emergency room with altered mental status. This was due to hypoglycemia. The patient had documented blood sugars in the 40s. She was admitted and started on a D10 drip. It was also noted that she was in acute bucky al failure with creatinine of 2 and she was also noted to have an elevated troponin. The highest of which was 0.859. After evaluation in the ER, the hypoglycemia is likely as a result to poor oral int prudence as she had missed the meal and she was also found to have urinary tract infection, which may have also contributed to the hypoglycemia. The urine culture grew E. coli, which was sensitive to Bactri m and she was sent home on this. The elevated troponin is thought to be due to a demand ischemia fro m both the hypoglycemia and the urinary tract infection. Her blood glucoses were controlled on a fra ction of the doses insulin that she normally takes at home. She does admit that she typically does n ot eat or she eats a lot more at home than she has in the hospital. For this reason, we will put her on a slightly lower dose of insulin when she goes home then she had been on previously estimating th at she may not need quite as much insulin that she normally takes at home, but on the same token that it will need to be higher than what she was controlled on here in the hospital. Therefore, we will place her on 85 units at home and this can be titrated back up to the 100 units if needed. She will need to follow up with her primary care physician in approximately one week.
== END 2018-02-16 20:18 | disposition home or self-care (01) | DRG 637 ==
LOC: ERS 17:54 → OBSVTOIN 20:25 → INTOOBSV 20:25 → 2NO 20:25
PROVIDERS: ADMIT Internal Medicine; ATTEND Internal Medicine
DX: E11.649 Type 2 diabetes mellitus with hypoglycemia without coma (principal); G93.41 Metabolic encephalopathy; I21.A1 Myocardial infarction type 2; N17.9 Acute kidney failure, unspecified; Z68.42 Body mass index [BMI] 45.0-49.9, adult; N30.00 Acute cystitis without hematuria; E87.2 Acidosis; E66.01 Morbid (severe) obesity due to excess calories; Z71.3 Dietary counseling and surveillance; Z79.4 Long term (current) use of insulin; B96.20 Unspecified Escherichia coli [E. coli] as the cause of diseases classified elsewhere; I10 Essential (primary) hypertension; E78.5 Hyperlipidemia, unspecified; M79.7 Fibromyalgia; E86.0 Dehydration
CPT/HCPCS: 36415; 36416; 51701; 71045; 78452; 80048; 80053; 80061; 81003; 81015; 82553; 83036; 83605; 83735; 84484; 84703; 85025; 85610; 85730; 87040; 87077; 87086; 87186; 93005; 93017; 93306; 96361; 96374; A4216; A4353; A9500; J0153; J0696; J1650; J1815